=== PATIENT | female | born 1935 | race Caucasian/White ===

== ENCOUNTER 2017-12-02 14:15 | Emergency (ER) | payer MEDICARE, OTHER ==
--- NOTE | 2017-12-02 14:54 | EDM.PDOC ---
ED HPI GENERAL MEDICAL PROBLEM - General Chief Complaint: ENT Problem Stated Complaint: bloody nose Time Seen by Provider: 12/02/17 14:17 Source of Information: Reports: Patient, RN History Limitations: Reports: No Limitations - History of Present Illness INITIAL COMMENTS - FREE TEXT/NARRATIVE: 82 y.o.w f, currently residing in the [place] [facility] due to a left lower leg fx. Pt is currently on Lovenox for PE prophylaxis. Pt started to have sudden onset of right nasal bleed. Pt denied trauma. [place] the [place]. A nose clamp was in place. Pt was actively bleeing from her right nostril. 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 (see below) Other Treatments BUILDING MATERIALS SALES ATTENDANT: PRESSURE TO NOSE - Related Data Allergies Allergy/AdvReac Type Severity Reaction Status Date / Time Sulfa (Sulfonamide Allergy Cannot Verified 12/02/17 14:35 Antibiotics) Remember Home Meds: Home Meds Gabapentin [Gralise] 600 mg PO ASDIRECTED 12/02/17 [History] Melatonin 3 mg PO ASDIRECTED 12/02/17 [History] Metoprolol Tartrate [Lopressor] 50 mg PO ASDIRECTED 12/02/17 [History] Mirtazapine [Remeron] 30 mg PO BEDTIME 12/02/17 [History] Pramipexole [Mirapex] 0.5 mg PO ASDIRECTED 12/02/17 [History] Simvastatin [Zocor] 10 mg PO BEDTIME 12/02/17 [History] amLODIPine [Norvasc] 10 mg PO ASDIRECTED 12/02/17 [History] Past Medical History HEENT History: Reports: Epistaxis, Impaired Vision Other HEENT History: WEARS GLASSES FOR READING Cardiovascular History: Reports: High Cholesterol, Hypertension Gastrointestinal History: Reports: Hemorrhoids 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: Musculoskeletal History: Reports: Fracture - Infectious Disease History Infectious Disease History: Reports: Chicken Pox, Measles, Mumps - Past Surgical History HEENT Surgical History: Reports: Cataract Surgery Musculoskeletal Surgical History: Reports: Other (See Below) Other Musculoskeletal Surgeries/Procedures:: PINS IN LT ANKLE Social & Family History - Family History Family Medical History: Unobtainable - Tobacco Use Smoking Status *Q: Never Smoker Second Hand Smoke Exposure: No - Caffeine Use Caffeine Use: Reports: Coffee - Recreational Drug Use Recreational Drug Use: No ED ROS ENT - Review of Systems Review Of Systems: See Below Constitutional: Reports: No Symptoms HEENT: Reports: Other (nose bleed) Respiratory: Reports: No Symptoms Cardiovascular: Reports: No Symptoms Endocrine: Reports: No Symptoms GI/Abdominal: Reports: No Symptoms : Reports: No Symptoms Musculoskeletal: Reports: No Symptoms Skin: Reports: No Symptoms Neurological: Reports: No Symptoms Psychiatric: Reports: No Symptoms Hematologic/Lymphatic: Reports: No Symptoms Immunologic: Reports: No Symptoms ED EXAM, ENT - Physical Exam Exam: See Below Exam Limited By: No Limitations General Appearance: Alert, WD/WN, Mild Distress Eye Exam: Bilateral Eye: Normal Inspection Ears: Normal External Exam, Normal Canal Nose: Active Bleeding Mouth/Throat: Normal Inspection, Normal Gums, Normal Lips, Normal Oropharynx Head: Atraumatic, Normocephalic Neck: Normal Inspection, Supple, Non-Tender, Full Range of Motion Respiratory/Chest: No Respiratory Distress, Lungs Clear, Normal Breath Sounds, No Accessory Muscle Use, Chest Non-Tender Cardiovascular: Normal Peripheral Pulses, Regular Rate, Rhythm, No Edema, No Gallop, No JVD, No Murmur, No Rub GI/Abdominal: Normal Bowel Sounds, Soft, Non-Tender, No Organomegaly, No Distention, No Abnormal Bruit (Female) Exam: Deferred Rectal (Female) Exam: Deferred Back: Normal Inspection, Full Range of Motion Extremities: Normal Inspection, Normal Range of Motion, Non-Tender, No Pedal Edema, Normal Capillary Refill Neurological: Alert, Oriented, CN II-XII Intact, Normal Cognition, Abnormal Gait (left lower leg fx) Psychiatric: Normal Affect Skin: Warm, Dry, Intact, Normal Color, No Rash Lymphatic: No Adenopathy Course - Vital Signs Text/Narrative:: 82 y.o.w f, currently residing in the [place] [facility] due to a left lower leg fx. Pt is currently on Lovenox for PE prophylaxis. Pt started to have sudden onset of right nasal bleed. Pt denied trauma. [place] the [place]. A nose clamp was in place. Pt was actively bleeing from her right nostril. 123/73 Pulse 78 RR 18 O2 98% on RA temp 36.8 PE: active right ant nosebleed, no dizziness, H/O fx left lower leg Impression: Active right ant nosebleed, H/O fx left lower leg Tx: Ice to forehead, Afrin in both nostrils Reexam: Nose bleed subsided 100% Plan: D/C with instructions Last Recorded V/S: Last Vital Signs Temp 36.6 C 12/02/17 14:53 Pulse 73 12/02/17 14:53 Resp 16 12/02/17 14:53 BP 107/74 12/02/17 14:53 Pulse Ox 96 12/02/17 14:53 Departure - Departure Time of Disposition: 14:51 Disposition: Home, Self-Care 01 Condition: Good Clinical Impression: Epistaxis - Discharge Information Referrals: Fritz Dorman MD [Primary Care Provider] - Forms: ED Department Discharge Additional Instructions: Please apply ice onto your forhead, apply Affrin in left nostril, f/u with your PMD, come back if your symptoms get worse acutely.
== END 2017-12-02 14:57 | disposition home or self-care (01) ==
LOC: FB.ED 14:15
DX: R04.0 Epistaxis (principal); I10 Essential (primary) hypertension; E78.00 Pure hypercholesterolemia, unspecified; Z88.2 Allergy status to sulfonamides
CPT/HCPCS: 99283